=== PATIENT | male | born 1975 | race Two or more races ===

== ENCOUNTER 2018-03-28 12:40 | Inpatient (IN) | payer MEDICAID ==
[~2018-03-28] VITALS: Ht 175.3 cm; Wt 98.3 kg
[2018-03-28] VITALS (9 sets, daily range): BP systolic 115–125; BP diastolic 65–74
[2018-03-28 13:41] LABS: White Blood Cell 17.8 10^3/uL (4.4-10.8)
[2018-03-28 13:42] LABS: Hematocrit 20.5 % (41.0-53.0); Mean Corpuscular Hemoglobin 21.3 pg (28.0-32.0); Mean Corpuscular Hgb Conc. 30.7 g/dL (32.0-36.0); Mean Corpuscular Volume 69.3 fL (80.0-100.0); Platelet Count (auto) 250 10^3/uL (140-450); Red Blood Cells 2.96 10^6/uL (4.5-5.90)
[2018-03-28] MEDS ORDERED: SODIUM CHLORIDE 0.9% 1,000 ML IVB ONE (13:42)
[2018-03-28 13:48] LABS: Hemoglobin 6.3 g/dL (13.5-17.5)
[2018-03-28 13:54] LABS: Potassium 3.5 mmol/L (3.5-5.1)
[2018-03-28 13:58] LABS: BUN/Creatinine Ratio 7.7; Calcium 7.7 mg/dL (8.5-10.1)
[2018-03-28 14:01] LABS: Bilirubin, Total 0.6 mg/dL (0.2-1.0); Total Protein 7.5 g/dL (6.4-8.2)
[2018-03-28 14:06] LABS: Basophils % (manual) 0 (0.0-2.0); Blast Cells 0; Eosinophils % (manual) 0 (0-7); Metamyelocytes % 0; Myelocytes % 0; Promyelocytes % 0; Reactive Lymphocytes 0
[2018-03-28 14:11] LABS: Band Neutrophils % (manual) 23; Lymphocytes % (manual) 4 (10.0-50.0); Monocytes % (manual) 1 (0-12)
[2018-03-28 14:21] LABS: INR 0.98 (0.9-1.15); Partial Thromboplastin Time 28.4 sec (23.78-33.04); Prothrombin Time 10.7 sec (9.27-12.13)
[2018-03-28] MEDS ORDERED: LIDOCAINE 2% JELLY 11ml (GLYDO) UR ONE (15:15)
[2018-03-28] MEDS ORDERED: cefTRIAXone 1GM/10ml IVPUSH 10 ML IV ONE (15:30)
[2018-03-28] MEDS ORDERED: NITROGLYCERIN 0.4 MG SL TAB SL PRN (15:30)
[2018-03-28] MEDS ORDERED: MORPHINE SULFATE 4 MG/ML SYR/VIAL IV PRN ×2 (15:30)
[2018-03-28] MEDS ORDERED: TAMSULOSIN HYDROCHLORIDE 0.4 MG CAP PO ONE (15:30)
[2018-03-28] MEDS: SODIUM CHLORIDE 0.9% 1,000 ML IV SCH ×2 (15:44→23:36)
[2018-03-28 15:45] LABS: Urine Bacteria FEW /hpf (None Seen); Urine Blood 2+ /uL (Negative); Urine Mucus FEW (None Seen); Urine Specific Gravity 1.013 (1.001-1.035); Urine WBC 874 /hpf (0 - 3); Urine WBC Clumps PRESENT /hpf (None Seen)
[2018-03-28] MEDS ORDERED: PANTOPRAZOLE 40 MG/10 ML VIAL IV ONE (15:45)
[2018-03-28 15:47] LABS: Alcohol, Urine < 3.0 mg/dL (0-5); Barbiturate Scree,Urine NEGATIVE (NEGATIVE); Benzodiazephine Screen, Urine NEGATIVE (NEGATIVE); Cannabinoid Screen, Urine POSITIVE (NEGATIVE); Cocaine Screen, Urine NEGATIVE (NEGATIVE); Opiate Scree,Urine NEGATIVE (NEGATIVE); Phencyclidine Screen, Urine NEGATIVE (NEGATIVE)
[2018-03-28 15:58] LABS: Amphetamine Screen, Urine POSITIVE (NEGATIVE)
[2018-03-28] MEDS ORDERED: GOLYTELY 4L KIT PO ONE (16:45)
[2018-03-28] MEDS: TAMSULOSIN HYDROCHLORIDE 0.4 MG CAP PO SCH (18:37)
[2018-03-28] MEDS: HYDROcodone-ACET 5/325MG TAB PO PRN (21:15)
[2018-03-28 22:12] LABS: % Iron Saturation 1.9 % (20-55)
[2018-03-29 04:40] VITALS: BP 108/70
[2018-03-29] MEDS ORDERED: INFLUENZA QUAD 2018-2019 0.5 ML SYRG IM ONE (05:15)
[2018-03-29] MEDS ORDERED: GOLYTELY 4L KIT PO ONE (06:00)
[2018-03-29 06:15] LABS: Basophils # (auto) 0 uL; Basophils % (auto) 0.2 % (0.0-2.0); Eosinophils # (auto) 0 uL; Hemoglobin 8.1 g/dL (13.5-17.5); Monocytes # (auto) 0.7 uL; Platelet Count (auto) 200 10^3/uL (140-450)
[2018-03-29 06:17] LABS: Eosinophils % (auto) 0.1 % (0.0-7.0); Hematocrit 24.8 % (41.0-53.0); Lymphocytes # (auto) 0.5 uL; Lymphocytes % (auto) 3.1 % (10.0-50.0); Mean Corpuscular Hemoglobin 23.7 pg (28.0-32.0); Mean Corpuscular Hgb Conc. 32.6 g/dL (32.0-36.0); Mean Corpuscular Volume 72.7 fL (80.0-100.0); Neutrophils # (auto) 15.9 uL; Neutrophils % (auto) 92.6 % (37.0-80.0); Red Blood Cells 3.42 10^6/uL (4.5-5.90); White Blood Cell 17.1 10^3/uL (4.4-10.8)
[2018-03-29 06:32] LABS: BUN/Creatinine Ratio 8.5; Potassium 3.6 mmol/L (3.5-5.1)
[2018-03-29 08:02] VITALS: BP 103/67
[2018-03-29] MEDS ORDERED: MIDAZOLAM HCL 5 MG/ML-1ML VIAL ONE (08:26)
[2018-03-29] MEDS ORDERED: fentaNYL CITRATE 100 MCG/2 ML VL ONE (08:26)
[2018-03-29] MEDS ORDERED: SODIUM CHLORIDE LOCK 10 ML ONE (08:26)
[2018-03-29] MEDS ORDERED: diphenhdrAMINE HCL 50 MG/1 ML VL ONE (08:26)
[2018-03-29] MEDS ORDERED: cefTRIAXone 1GM/10ml IVPUSH 10 ML IV SCH (09:00)
[2018-03-29] MEDS: PANTOPRAZOLE 40 MG/10 ML VIAL IV SCH (10:08)
[2018-03-29] MEDS ORDERED: SODIUM CHLORIDE 0.9% 500 ML IV ONE (12:15)
[2018-03-29] MEDS ORDERED: PIPERACILLIN-TAZOB 2.25GM 50 ML IV ONE (12:15)
[2018-03-29 12:26] VITALS: BP 109/71
[2018-03-29] MEDS: SODIUM CHLORIDE 0.9% 1,000 ML IV SCH ×3 (15:30→23:41)
[2018-03-29 16:56] VITALS: BP 115/71
[2018-03-29] MEDS: TAMSULOSIN HYDROCHLORIDE 0.4 MG CAP PO SCH (17:31)
[2018-03-29] MEDS: PIPERACILLIN-TAZOB 2.25GM 50 ML IV SCH (18:00)
[2018-03-29] MEDS: HYDROmorphone HCL 2 MG/ML VL IV PRN (19:14)
[2018-03-29] MEDS: HYDROcodone-ACET 5/325MG TAB PO PRN ×2 (20:50→23:40)
[2018-03-29 21:30] VITALS: BP 120/72
[2018-03-30] MEDS: PIPERACILLIN-TAZOB 2.25GM 50 ML IV SCH ×4 (00:02→17:43)
[2018-03-30] MEDS: HYDROcodone-ACET 5/325MG TAB PO PRN ×3 (04:18→19:55)
[2018-03-30 05:00] VITALS: BP 117/66
[2018-03-30] MEDS ORDERED: FLEET ENEMA(ADULT) 135 ML PR ONE (06:00)
[2018-03-30 06:26] LABS: Basophils # (auto) 0 uL; Eosinophils # (auto) 0 uL; Lymphocytes # (auto) 0.4 uL; Monocytes # (auto) 0.6 uL
[2018-03-30 06:30] LABS: Hematocrit 22.4 % (41.0-53.0); Hemoglobin 7.5 g/dL (13.5-17.5); Lymphocytes % (auto) 2.8 % (10.0-50.0); Mean Corpuscular Hemoglobin 24.2 pg (28.0-32.0); Mean Corpuscular Hgb Conc. 33.5 g/dL (32.0-36.0); Mean Corpuscular Volume 72.2 fL (80.0-100.0); Monocytes % (auto) 4.2 % (0.0-12.0); Neutrophils # (auto) 14.4 uL; Platelet Count (auto) 168 10^3/uL (140-450); Red Blood Cells 3.09 10^6/uL (4.5-5.90); White Blood Cell 15.5 10^3/uL (4.4-10.8)
[2018-03-30 06:32] LABS: Red Cell Distribution Width 23.3 % (11.8-14.3)
[2018-03-30 06:46] LABS: Calcium 6.8 mg/dL (8.5-10.1); Potassium 3.4 mmol/L (3.5-5.1)
[2018-03-30] MEDS: SODIUM CHLORIDE 0.9% 1,000 ML IV SCH ×2 (08:44→15:30)
[2018-03-30 09:00] VITALS: BP 108/73
[2018-03-30] MEDS: PANTOPRAZOLE 40 MG/10 ML VIAL IV SCH (09:23)
[2018-03-30 13:00] VITALS: BP 116/57
[2018-03-30] MEDS ORDERED: IODIXANOL 320MG/ML 100ML BTL IV ONE (13:06)
[2018-03-30] MEDS ORDERED: LIDOCAINE 2%HCL (LOCAL ANESTH.) INJ 20ML MDV ONE (13:06)
[2018-03-30] MEDS ORDERED: fentaNYL CITRATE 100 MCG/2 ML VL ONE (13:08)
[2018-03-30] MEDS ORDERED: MIDAZOLAM HCL 1MG/1ML-2 ML VIAL ONE (13:09)
[2018-03-30] MEDS ORDERED: POTASSIUM CHL 20 Meq TABLET PO ONE (13:15)
[2018-03-30] MEDS ORDERED: LIDOCAINE 2%HCL (LOCAL ANESTH.) INJ 10ml MDV ONE (13:58)
[2018-03-30] MEDS ORDERED: ACETAMINOPHEN 500 MG TAB PO PRN (15:30)
[2018-03-30 17:38] VITALS: BP 115/71
[2018-03-30] MEDS: TAMSULOSIN HYDROCHLORIDE 0.4 MG CAP PO SCH (17:43)
[2018-03-30 21:30] VITALS: BP 125/75
[2018-03-31] MEDS: SODIUM CHLORIDE 0.9% 1,000 ML IV SCH ×3 (01:43→15:53)
[2018-03-31] MEDS: PIPERACILLIN-TAZOB 2.25GM 50 ML IV SCH ×3 (01:43→12:34)
[2018-03-31] MEDS: HYDROcodone-ACET 5/325MG TAB PO PRN ×2 (01:49→10:47)
[2018-03-31 05:00] VITALS: BP 121/76
[2018-03-31 06:38] LABS: Basophils # (auto) 0 uL; Eosinophils # (auto) 0 uL; Eosinophils % (auto) 0.1 % (0.0-7.0); Lymphocytes # (auto) 0.4 uL; Lymphocytes % (auto) 3.1 % (10.0-50.0)
[2018-03-31 06:41] LABS: Basophils % (auto) 0.1 % (0.0-2.0); Hematocrit 21.5 % (41.0-53.0); Hemoglobin 7.1 g/dL (13.5-17.5); Mean Corpuscular Hgb Conc. 32.9 g/dL (32.0-36.0); Mean Corpuscular Volume 72.8 fL (80.0-100.0); Monocytes # (auto) 0.7 uL; Monocytes % (auto) 5.4 % (0.0-12.0); Neutrophils # (auto) 11.7 uL; Neutrophils % (auto) 91.3 % (37.0-80.0); Platelet Count (auto) 144 10^3/uL (140-450); Red Blood Cells 2.95 10^6/uL (4.5-5.90); White Blood Cell 12.8 10^3/uL (4.4-10.8)
[2018-03-31 06:57] LABS: Potassium 4.1 mmol/L (3.5-5.1); Red Cell Distribution Width 23.3 % (11.8-14.3)
[2018-03-31 07:03] LABS: BUN/Creatinine Ratio 7.8; Bilirubin, Total 0.4 mg/dL (0.2-1.0); Calcium 6.6 mg/dL (8.5-10.1); Total Protein 5.8 g/dL (6.4-8.2)
[2018-03-31 08:58] VITALS: BP 113/66
[2018-03-31] MEDS: PANTOPRAZOLE 40 MG/10 ML VIAL IV SCH (10:21)
[2018-03-31 13:00] VITALS: BP 118/68
[2018-03-31] MEDS: SODIUM FERR GLUC 62.5MG/5ML 125 MG in SODIUM CHL 0.9% 100 ML IV SCH (13:03)
[2018-03-31] MEDS ORDERED: LEVOFLOXACIN 250 MG TAB PO ONE (14:00)
[2018-03-31 17:00] VITALS: BP 116/64
[2018-03-31 17:02] VITALS: BP 116/64
[2018-03-31] MEDS: HYDROcodone-ACET 10/325MG TAB PO PRN (17:21)
[2018-03-31] MEDS: TAMSULOSIN HYDROCHLORIDE 0.4 MG CAP PO SCH (17:35)
[2018-03-31 21:15] LABS: Urine Bacteria NONE SEEN /hpf (None Seen); Urine Blood 3+ /uL (Negative); Urine Mucus FEW (None Seen); Urine Specific Gravity 1.021 (1.001-1.035); Urine WBC 315 /hpf (0 - 3); Urine WBC Clumps PRESENT /hpf (None Seen)
[2018-03-31 21:24] LABS: Protein, Urine 227.2 mg/dL (0.0-11.9)
[2018-03-31 22:00] VITALS: BP 136/80
[2018-04-01] MEDS: SODIUM CHLORIDE 0.9% 1,000 ML IV SCH ×2 (00:27→05:38)
[2018-04-01 04:49] VITALS: BP 135/76
[2018-04-01 05:58] LABS: Hemoglobin 7.5 g/dL (13.5-17.5); White Blood Cell 9.6 10^3/uL (4.4-10.8)
[2018-04-01 06:02] LABS: Hematocrit 22.7 % (41.0-53.0); Mean Corpuscular Hemoglobin 24.1 pg (28.0-32.0); Mean Corpuscular Volume 72.9 fL (80.0-100.0); Platelet Count (auto) 138 10^3/uL (140-450); Red Blood Cells 3.12 10^6/uL (4.5-5.90)
[2018-04-01 06:11] LABS: Red Cell Distribution Width 23.2 % (11.8-14.3)
[2018-04-01 06:12] LABS: Basophils % (manual) 0 (0.0-2.0); Blast Cells 0; Eosinophils % (manual) 0 (0-7); Myelocytes % 0; Promyelocytes % 0; Reactive Lymphocytes 0
[2018-04-01 06:15] LABS: Potassium 3.6 mmol/L (3.5-5.1)
[2018-04-01 06:17] LABS: BUN/Creatinine Ratio 8.2; Phosphorus 4.6 mg/dL (2.5-4.90); Uric Acid 5.2 mg/dL (3.5-7.2)
[2018-04-01 08:00] VITALS: BP 131/75
[2018-04-01 08:18] LABS: Band Neutrophils % (manual) 6; Lymphocytes % (manual) 4 (10.0-50.0); Metamyelocytes % 3; Monocytes % (manual) 4 (0-12)
[2018-04-01 09:00] VITALS: BP 131/75
[2018-04-01] MEDS: PANTOPRAZOLE 40 MG/10 ML VIAL IV SCH (09:46)
[2018-04-01] MEDS: HYDROmorphone HCL 2 MG/ML VL IV PRN ×2 (11:06→18:32)
[2018-04-01] MEDS: SODIUM BICARBONATE 50ML VIAL 75 ML in SOD CHL 0.45% 1,000 ML IV SCH ×2 (11:07→17:43)
[2018-04-01] MEDS: SODIUM FERR GLUC 62.5MG/5ML 125 MG in SODIUM CHL 0.9% 100 ML IV SCH (12:45)
[2018-04-01 13:06] VITALS: BP 133/75
[2018-04-01] MEDS ORDERED: MORPHINE SULFATE 4 MG/ML SYR/VIAL IV PRN (15:45)
[2018-04-01 16:53] VITALS: BP 139/76
[2018-04-01] MEDS: TAMSULOSIN HYDROCHLORIDE 0.4 MG CAP PO SCH (17:08)
[2018-04-01] MEDS: cefTRIAXone 1GM/10ml IVPUSH 10 ML IV SCH (17:08)
[2018-04-01] MEDS: HYDROcodone-ACET 10/325MG TAB PO PRN (17:21)
[2018-04-01 21:33] VITALS: BP 138/89
[2018-04-02] VITALS (12 sets, daily range): BP systolic 127–147; BP diastolic 72–97
[2018-04-02] MEDS: HYDROcodone-ACET 10/325MG TAB PO PRN ×2 (01:10→10:25)
[2018-04-02] MEDS: SODIUM BICARBONATE 50ML VIAL 75 ML in SOD CHL 0.45% 1,000 ML IV SCH ×3 (01:11→17:22)
[2018-04-02 07:32] LABS: Hematocrit 23.3 % (41.0-53.0); Hemoglobin 7.7 g/dL (13.5-17.5)
[2018-04-02 07:34] LABS: Calcium 7.2 mg/dL (8.5-10.1); Potassium 3.3 mmol/L (3.5-5.1)
[2018-04-02 07:36] LABS: INR 1.03 (0.9-1.15); Partial Thromboplastin Time 37.6 sec (23.78-33.04)
[2018-04-02 07:38] LABS: BUN/Creatinine Ratio 9.2
[2018-04-02] MEDS ORDERED: POTASSIUM CHL 20 Meq TABLET PO ONE (09:30)
[2018-04-02] MEDS: PANTOPRAZOLE 40 MG/10 ML VIAL IV SCH (09:42)
[2018-04-02] MEDS: cefTRIAXone 1GM/10ml IVPUSH 10 ML IV SCH (09:42)
[2018-04-02] MEDS ORDERED: INFLUENZA QUAD 2018-2019 0.5 ML SYRG IM ONE (09:45)
[2018-04-02] MEDS: SODIUM FERR GLUC 62.5MG/5ML 125 MG in SODIUM CHL 0.9% 100 ML IV SCH (11:48)
[2018-04-02] MEDS: HYDROmorphone HCL 2 MG/ML VL IV PRN ×2 (11:49→18:43)
[2018-04-02] MEDS ORDERED: LEVOFLOXACIN 500 MG TAB PO SCH (14:00)
[2018-04-02] MEDS: TAMSULOSIN HYDROCHLORIDE 0.4 MG CAP PO SCH (18:00)
[2018-04-03] MEDS: HYDROmorphone HCL 2 MG/ML VL IV PRN ×2 (01:29→20:07)
[2018-04-03 05:00] VITALS: BP 138/78
[2018-04-03 07:29] LABS: Calcium 7.6 mg/dL (8.5-10.1); Potassium 3.4 mmol/L (3.5-5.1)
[2018-04-03 07:32] LABS: BUN/Creatinine Ratio 9.7
[2018-04-03 07:44] LABS: Hematocrit 26.1 % (41.0-53.0)
[2018-04-03 07:46] LABS: Hemoglobin 8.6 g/dL (13.5-17.5); Mean Corpuscular Hemoglobin 24.2 pg (28.0-32.0); Mean Corpuscular Volume 73.4 fL (80.0-100.0); Platelet Count (auto) 197 10^3/uL (140-450); Red Blood Cells 3.56 10^6/uL (4.5-5.90); Red Cell Distribution Width 23.7 % (11.8-14.3); White Blood Cell 10.7 10^3/uL (4.4-10.8)
[2018-04-03 07:47] LABS: Band Neutrophils % (manual) 0; Basophils % (manual) 0 (0.0-2.0); Blast Cells 0; Eosinophils % (manual) 0 (0-7); Metamyelocytes % 0; Monocytes % (manual) 0 (0-12); Myelocytes % 0; Promyelocytes % 0; Reactive Lymphocytes 0
[2018-04-03 08:44] VITALS: BP 122/71
[2018-04-03] MEDS ORDERED: POTASSIUM CHL 20 Meq TABLET PO ONE (09:15)
[2018-04-03 09:23] LABS: Lymphocytes % (manual) 1 (10.0-50.0)
[2018-04-03] MEDS: SODIUM BICARBONATE 50ML VIAL 75 ML in SOD CHL 0.45% 1,000 ML IV SCH ×3 (09:52→20:14)
[2018-04-03] MEDS: PANTOPRAZOLE 40 MG/10 ML VIAL IV SCH (09:52)
[2018-04-03] MEDS: cefTRIAXone 1GM/10ml IVPUSH 10 ML IV SCH (09:52)
[2018-04-03] MEDS ORDERED: ceFAZolin 1GM/50ML 50 ML IV ONE (12:37)
[2018-04-03 13:07] VITALS: BP 149/88
[2018-04-03] MEDS ORDERED: LIDOCAINE 1% HCL (LOCAL ANESTH.) INJ 20ML MDV ONE (15:08)
[2018-04-03] MEDS ORDERED: SUCCINYLCHOLINE CHLORIDE 20 MG/ML 10ML VIAL IV ONE (15:08)
[2018-04-03] MEDS ORDERED: IOHEXOL 300 MG/ML 100ML BOTTLE IJ ONE (15:13)
[2018-04-03] MEDS ORDERED: MIDAZOLAM HCL 1MG/1ML-2 ML VIAL ONE (15:22)
[2018-04-03] MEDS ORDERED: METOCLOPRAMIDE HCL 5MG/ml INJ 2ml VIAL ONE (15:22)
[2018-04-03] MEDS ORDERED: PROPOFOL 10 MG/ML 20 ML IV ONE (15:24)
[2018-04-03] MEDS ORDERED: fentaNYL CITRATE 100 MCG/2 ML VL ONE (15:34)
[2018-04-03] MEDS ORDERED: HYDROmorphone HCL 2 MG/ML VL IV PRN ×2 (15:45)
[2018-04-03] MEDS ORDERED: NALOXONE HCL 0.4 MG/ML VIAL IV PRN (15:45)
[2018-04-03] MEDS ORDERED: ONDANSETRON HCL 4 MG/2 ML VIAL IV ONE (15:45)
[2018-04-03] MEDS ORDERED: ALBUTEROL SULF 2.5 MG/0.5ML(0.5%) NEB SOLN NEB ONE (17:00)
[2018-04-03] MEDS ORDERED: IPRATROPIUM BROM 0.5 MG/2.5ML INH SOL NEB ONE (17:00)
[2018-04-03] MEDS: TAMSULOSIN HYDROCHLORIDE 0.4 MG CAP PO SCH (18:10)
[2018-04-03 19:05] LABS: BUN/Creatinine Ratio 9.2; Calcium 7.5 mg/dL (8.5-10.1)
[2018-04-03] MEDS: ONDANSETRON HCL 4 MG/2 ML VIAL IV PRN (20:07)
[2018-04-03 22:00] VITALS: BP 140/85
[2018-04-04 05:00] VITALS: BP 131/87
[2018-04-04 06:10] LABS: Hematocrit 31.1 % (41.0-53.0); Hemoglobin 10.1 g/dL (13.5-17.5); Mean Corpuscular Hemoglobin 24.5 pg (28.0-32.0); Mean Corpuscular Hgb Conc. 32.5 g/dL (32.0-36.0); Mean Corpuscular Volume 75.3 fL (80.0-100.0); Platelet Count (auto) 264 10^3/uL (140-450); Red Blood Cells 4.13 10^6/uL (4.5-5.90); White Blood Cell 15.4 10^3/uL (4.4-10.8)
[2018-04-04 06:17] LABS: Red Cell Distribution Width 24.4 % (11.8-14.3)
[2018-04-04 06:18] LABS: Basophils % (manual) 0 (0.0-2.0); Blast Cells 0; Myelocytes % 0; Promyelocytes % 0; Reactive Lymphocytes 0
[2018-04-04 06:27] LABS: Calcium 8.2 mg/dL (8.5-10.1)
[2018-04-04] MEDS: SODIUM BICARBONATE 50ML VIAL 75 ML in SOD CHL 0.45% 1,000 ML IV SCH ×3 (06:30→21:36)
[2018-04-04 07:41] LABS: Band Neutrophils % (manual) 1; Eosinophils % (manual) 3 (0-7); Lymphocytes % (manual) 10 (10.0-50.0); Metamyelocytes % 1; Monocytes % (manual) 4 (0-12)
[2018-04-04 08:30] VITALS: BP 135/81
[2018-04-04] MEDS: HYDROmorphone HCL 2 MG/ML VL IV PRN ×3 (08:42→22:39)
[2018-04-04] MEDS: ONDANSETRON HCL 4 MG/2 ML VIAL IV PRN ×3 (08:43→22:38)
[2018-04-04] MEDS: PANTOPRAZOLE 40 MG/10 ML VIAL IV SCH (08:43)
[2018-04-04] MEDS: cefTRIAXone 1GM/50ML D5W 50 ML IV SCH (08:43)
[2018-04-04 15:17] VITALS: BP 147/93
[2018-04-04 16:34] VITALS: BP 137/88
[2018-04-04] MEDS: TAMSULOSIN HYDROCHLORIDE 0.4 MG CAP PO SCH (18:00)
[2018-04-04 22:15] VITALS: BP 153/105
[2018-04-05] MEDS: HYDROmorphone HCL 2 MG/ML VL IV PRN ×4 (05:25→21:52)
[2018-04-05] MEDS: ONDANSETRON HCL 4 MG/2 ML VIAL IV PRN ×2 (05:27→17:32)
[2018-04-05 05:30] VITALS: BP 138/86
[2018-04-05 06:07] LABS: Hemoglobin 8.7 g/dL (13.5-17.5); Mean Corpuscular Volume 75.2 fL (80.0-100.0)
[2018-04-05 06:12] LABS: Hematocrit 26.2 % (41.0-53.0); Mean Corpuscular Hemoglobin 24.9 pg (28.0-32.0); Mean Corpuscular Hgb Conc. 33.1 g/dL (32.0-36.0); Platelet Count (auto) 246 10^3/uL (140-450); Red Blood Cells 3.49 10^6/uL (4.5-5.90); White Blood Cell 11.5 10^3/uL (4.4-10.8)
[2018-04-05 06:18] LABS: Red Cell Distribution Width 23.9 % (11.8-14.3)
[2018-04-05 06:19] LABS: Basophils % (manual) 0 (0.0-2.0); Blast Cells 0; Metamyelocytes % 0; Myelocytes % 0; Promyelocytes % 0; Reactive Lymphocytes 0
[2018-04-05 08:34] LABS: Potassium 3.6 mmol/L (3.5-5.1)
[2018-04-05 08:38] LABS: BUN/Creatinine Ratio 9.2; Bilirubin, Total 0.4 mg/dL (0.2-1.0); Calcium 7.8 mg/dL (8.5-10.1)
[2018-04-05 08:43] LABS: Band Neutrophils % (manual) 4; Monocytes % (manual) 2 (0-12)
[2018-04-05 08:44] LABS: Eosinophils % (manual) 1 (0-7); Lymphocytes % (manual) 8 (10.0-50.0)
[2018-04-05] MEDS: PANTOPRAZOLE 40 MG/10 ML VIAL IV SCH (09:26)
[2018-04-05] MEDS: SODIUM BICARBONATE 50ML VIAL 75 ML in SOD CHL 0.45% 1,000 ML IV SCH (09:26)
[2018-04-05] MEDS: cefTRIAXone 1GM/50ML D5W 50 ML IV SCH (09:26)
[2018-04-05 09:33] VITALS: BP 137/86
[2018-04-05] MEDS ORDERED: GOLYTELY 4L KIT PO ONE (12:00)
[2018-04-05] MEDS ORDERED: MORPHINE SULFATE 4 MG/ML SYR/VIAL IV PRN (12:45)
[2018-04-05] MEDS ORDERED: HYDROcodone-ACET 10/325MG TAB PO PRN (12:45)
[2018-04-05 13:23] VITALS: BP_SYST 132; BP_SYST 145; BP_DIAS 83; BP_DIAS 99
[2018-04-05] MEDS: TAMSULOSIN HYDROCHLORIDE 0.4 MG CAP PO SCH ×2 (15:02→17:33)
[2018-04-05] MEDS: SODIUM CHLORIDE 0.9% 1,000 ML IV SCH (15:08)
[2018-04-05 17:05] VITALS: BP 130/90
[2018-04-06] MEDS ORDERED: GOLYTELY 4L KIT PO ONE (04:00)
[2018-04-06] MEDS: HYDROmorphone HCL 2 MG/ML VL IV PRN ×4 (04:04→21:11)
[2018-04-06 05:18] VITALS: BP 155/95
[2018-04-06 06:54] LABS: BUN/Creatinine Ratio 6.7; Calcium 7.6 mg/dL (8.5-10.1); Potassium 3.6 mmol/L (3.5-5.1)
[2018-04-06] MEDS: SODIUM CHLORIDE 0.9% 1,000 ML IV SCH ×2 (06:55→23:35)
[2018-04-06] MEDS ORDERED: NALOXONE HCL 0.4 MG/ML VIAL ONE (08:26)
[2018-04-06] MEDS ORDERED: FLUMAZENIL 0.1 MG/ML INJ 10ML MDV IV ONE (08:26)
[2018-04-06] MEDS ORDERED: SODIUM CHLORIDE LOCK 10 ML ONE (08:26)
[2018-04-06] MEDS: PANTOPRAZOLE 40 MG/10 ML VIAL IV SCH (08:47)
[2018-04-06 09:00] VITALS: BP 137/92
[2018-04-06] MEDS: cefTRIAXone 1GM/50ML D5W 50 ML IV SCH (09:00)
[2018-04-06] MEDS: fentaNYL CITRATE 100 MCG/2 ML VL ONE ×3 (09:12→09:20)
[2018-04-06] MEDS: MIDAZOLAM HCL 5 MG/ML-1ML VIAL ONE ×4 (09:12→09:23)
[2018-04-06] MEDS ORDERED: diphenhdrAMINE 50mg/ml (500mg/10ml VIAL) ONE (10:46)
[2018-04-06 13:00] VITALS: BP 150/93
[2018-04-06 17:00] VITALS: BP 136/86
[2018-04-06] MEDS: TAMSULOSIN HYDROCHLORIDE 0.4 MG CAP PO SCH (18:00)
[2018-04-06 22:21] VITALS: BP 147/96
[2018-04-07] MEDS: HYDROmorphone HCL 2 MG/ML VL IV PRN ×3 (01:17→12:45)
[2018-04-07 05:33] VITALS: BP 142/85
[2018-04-07 06:42] LABS: Basophils # (auto) 0.1 uL; Eosinophils # (auto) 0.3 uL; Lymphocytes # (auto) 1.1 uL; Monocytes # (auto) 0.5 uL; White Blood Cell 9.2 10^3/uL (4.4-10.8)
[2018-04-07 06:44] LABS: Basophils % (auto) 0.9 % (0.0-2.0); Eosinophils % (auto) 3.2 % (0.0-7.0); Hematocrit 25.4 % (41.0-53.0); Hemoglobin 8.2 g/dL (13.5-17.5); Lymphocytes % (auto) 11.6 % (10.0-50.0); Mean Corpuscular Hemoglobin 24.4 pg (28.0-32.0); Mean Corpuscular Hgb Conc. 32.2 g/dL (32.0-36.0); Monocytes % (auto) 5.4 % (0.0-12.0); Neutrophils # (auto) 7.2 uL; Neutrophils % (auto) 78.9 % (37.0-80.0); Platelet Count (auto) 275 10^3/uL (140-450); Red Blood Cells 3.34 10^6/uL (4.5-5.90)
[2018-04-07 06:58] LABS: Red Cell Distribution Width 25.1 % (11.8-14.3)
[2018-04-07 07:30] LABS: BUN/Creatinine Ratio 5.4; Calcium 7.6 mg/dL (8.5-10.1); Potassium 3.5 mmol/L (3.5-5.1)
[2018-04-07] MEDS: cefTRIAXone 1GM/50ML D5W 50 ML IV SCH (08:09)
[2018-04-07 09:00] VITALS: BP 139/90
[2018-04-07] MEDS ORDERED: PANTOPRAZOLE 40 MG TAB PO SCH (10:00)
[2018-04-07 15:00] VITALS: BP 139/90
== END 2018-04-07 15:30 | disposition home or self-care (01) | DRG 720 ==
LOC: ER 12:40 → TELE 12:41 → TELE-WESTW 20:47 → WEST WING 04-06 01:20
PROVIDERS: ADMIT Internal Medicine; ATTEND Internal Medicine
PROC: 30233N1 Transfusion of Nonautologous Red Blood Cells into Peripheral Vein, Percutaneous Approach (ICD-10-PCS; 2018-03-28)
PROC: 0TF6XZZ Fragmentation in Right Ureter, External Approach (ICD-10-PCS; principal; 2018-04-03 15:14)
PROC: 0T768DZ Dilation of Right Ureter with Intraluminal Device, Via Natural or Artificial Opening Endoscopic (ICD-10-PCS; 2018-04-03 15:14)
PROC: 0DJD8ZZ Inspection of Lower Intestinal Tract, Via Natural or Artificial Opening Endoscopic (ICD-10-PCS; 2018-04-06)
DX: A41.9 Sepsis, unspecified organism (principal); N17.0 Acute kidney failure with tubular necrosis; E43 Unspecified severe protein-calorie malnutrition; D62 Acute posthemorrhagic anemia; N18.4 Chronic kidney disease, stage 4 (severe); F15.10 Other stimulant abuse, uncomplicated; N13.6 Pyonephrosis; F15.129 Other stimulant abuse with intoxication, unspecified; N39.0 Urinary tract infection, site not specified; K92.1 Melena; N20.0 Calculus of kidney; N43.3 Hydrocele, unspecified; B96.20 Unspecified Escherichia coli [E. coli] as the cause of diseases classified elsewhere; F12.90 Cannabis use, unspecified, uncomplicated; F17.210 Nicotine dependence, cigarettes, uncomplicated; K40.90 Unilateral inguinal hernia, without obstruction or gangrene, not specified as recurrent; K64.8 Other hemorrhoids; K64.4 Residual hemorrhoidal skin tags; I12.9 Hypertensive chronic kidney disease with stage 1 through stage 4 chronic kidney disease, or unspecified chronic kidney disease; D50.9 Iron deficiency anemia, unspecified; N50.89 Other specified disorders of the male genital organs; Z53.9 Procedure and treatment not carried out, unspecified reason; Z79.899 Other long term (current) drug therapy; Z82.49 Family history of ischemic heart disease and other diseases of the circulatory system; Z68.24 Body mass index [BMI] 24.0-24.9, adult
CPT/HCPCS: 45378; 96361; 96374; 96375; 96376; 99285; S2070; 36415; 36430; 70450; 71045; 74018; 74176; 76870; 76942; 80048; 80053; 80307; 81001; 82270; 82306; 82570; 83540; 83550; 83605; 83735; 84100; 84156; 84300; 84484; 84550; 85007; 85014; 85018; 85025; 85027; 85610; 85730; 86850; 86900; 86901; 86920; 87040; 87077; 87086; 87088; 87186; 90674; 93005; 94640; 94761; 97163; 99152; A6257; C9113; J0330; J0690; J0696; J1200; J2001; J2250; J2405; J2543; J2704; Q9967

== ENCOUNTER 2020-03-01 22:14 | Emergency (ER) | payer MEDICAID ==
[~2020-03-01] VITALS: Ht 172.7 cm; Wt 68.0 kg
[2020-03-02] MEDS ORDERED: ONDANSETRON HCL 4 MG/2 ML VIAL IM ONE (03:00)
[2020-03-02] MEDS ORDERED: cefTRIAXone SOD 1,000 MG VL IM ONE (03:00)
[2020-03-02] MEDS ORDERED: MORPHINE SULF INJ 2 MG/ML SYRINGE 1ML IM ONE (03:00)
[2020-03-02] MEDS ORDERED: ONDANSETRON ODT 4 MG TAB PO ONE (03:15)
[2020-03-02 04:19] VITALS: BP 122/78
[2020-03-02] MEDS ORDERED: HYDROmorphone HCL 2 MG/ML VL IM ONE (04:30)
== END 2020-03-02 06:03 | disposition home or self-care (01) ==
LOC: EDBD 22:14 → ER 22:15
DX: S40.211A Abrasion of right shoulder, initial encounter (principal); S50.811A Abrasion of right forearm, initial encounter; M25.551 Pain in right hip; V87.8XXA Person injured in other specified noncollision transport accidents involving motor vehicle (traffic), initial encounter; Y93.89 Activity, other specified; Y92.89 Other specified places as the place of occurrence of the external cause; Y99.8 Other external cause status
CPT/HCPCS: 70450; 72125; 72192; 73030; 73562; 96372; 99285; J0696; J1170; J2270; J2405; Q0162

== ENCOUNTER 2021-01-16 23:15 | Emergency (ER) | payer MEDICAID ==
[~2021-01-16] VITALS: Ht 177.8 cm; Wt 77.1 kg
[2021-01-16 23:23] VITALS: BP 134/99
[2021-01-16] MEDS ORDERED: BETHANECHOL CHLORIDE 25 MG TAB PO ONE (23:30)
== END 2021-01-17 03:00 | disposition left against medical advice (07) ==
LOC: ER 23:15
DX: R30.9 Painful micturition, unspecified (principal); Z53.21 Procedure and treatment not carried out due to patient leaving prior to being seen by health care provider

== ENCOUNTER 2025-05-29 21:39 | Emergency (ER) | payer MEDICAID, OTHER ==
[~2025-05-29] VITALS: Ht 175.3 cm; Wt 64.3 kg
--- NOTE | 2025-05-29 22:13 | ED.PDOC ---
History of Present Illness HPI Comments 50 y/o M presents with c/c of urine retention x1 week. Chief Complaint: Urinary Time Seen by MD: 22:00 Primary Care Provider: [facility] PCP Reviewed Notes: Nurses Notes, Medications, Allergies Allergies: Coded Allergies: No Known Drug Allergy (Verified Allergy, Unknown, 03/28/18) Home Meds Active Scripts Ciprofloxacin Hcl (Cipro) 250 Mg Tab, 250 MG PO BID for 10 Days, #20 TAB Prov:FERNANDEZ CARLSON MD 05/30/25 Information Source: Patient Mode of Arrival: Ambulatory Severity: Moderate Timing: Days Duration: Since onset Prehospital treatment: None Past Medical History PAST MEDICAL HISTORY: Denies Surgical History: Denies all surgeries Family History Family History: No family hx of HTN Social History Smoker: Cigarettes, Less Than 1 Pack/Day Alcohol: Rarely Drugs: Marijuana Lives In: Home All Other Systems: Reviewed and Negative (As per HPI) Physical Exam General Appearance: No Apparent Distress, Normal HEENT: Normal ENT Inspection, Pharynx Normal, TMs Normal Neck: Full Range of Motion, Non-Tender, Normal, Normal Inspection Respiratory: Chest Non-Tender, Lungs Clear, No Accessory Muscle Use, No Respiratory Distress, Normal Breath Sounds Cardiovascular: No Edema, No JVD, No Murmur, No Gallop, Normal Peripheral Pulses, Regular Rate/Rhythm Breast Exam: Deferred Gastrointestinal: No Organomegaly, Non Tender, No Pulsatile Mass, Normal Bowel Sounds, Soft Genitalia: Deferred Pelvic: Deferred Rectal: Deferred Extremities: No calf tenderness, Normal capillary refill, Normal inspection, Normal range of motion, Non-tender, No pedal edema Musculoskeletal : Apperance: Normal Neurologic: Alert, oral surgeon II-XII nml as Tested, No Motor Deficits, Normal Affect, Normal Mood, No Sensory Deficits Cerebellar Function: Normal Reflexes: Normal Skin: Dry, Normal Color, Warm Lymphatic: No Adenopathy Was a procedure done? Was a procedure done?: No Differential Dx Considerations may include: ureteral stone, kidney stone, UTI, enlarged prostate, prostatitis, among others X-Ray, Labs, Meds, VS Vital Signs Date Time Temp Pulse Resp B/P (MAP) Pulse Ox O2 Delivery O2 Flow Rate FiO2 05/30/25 03:50 16 94 Room Air* 0 21 05/30/25 03:45 97.7 93 16 140/95 (110) 94 97.7 05/29/25 21:41 97.7 90 18 144/108 93 97.7 Lab Test 05/30/25 03:50 05/29/25 22:00 Range/Units Urine Color Light-yellow Yellow Urine Clarity Clear Clear Urine pH 6.5 5.0-9.0 Urine Specific [place] 1.015 1.001-1.035 Urine Protein Negative Negative Urine Ketones Negative Negative Urine Blood Trace H Negative /uL Urine Nitrite Negative Negative Urine Bilirubin Negative Negative Urine Urobilinogen Normal Negative mg/dL Urine Leukocyte Esterase Negative Negative /uL Urine RBC 4 0 - 3 /hpf Urine Microscopic WBC 2 0-3 /HPF Urine Squamous Epithelial Cells None seen <5 /hpf Urine Bacteria None seen None Seen /hpf Urine Glucose Normal Normal mg/dL White Blood Count 7.7 4.4-10.8 10^3/uL Red Blood Count 3.45 L 4.5-5.90 10^6/uL Hemoglobin 10.6 L 13.5-17.5 g/dL Hematocrit 31.6 L 41.0-53.0 % Mean Corpuscular Volume 91.5 80.0-100.0 fL Mean Corpuscular Hemoglobin 30.8 28.0-32.0 pg Mean Corpuscular Hemoglobin Concent 33.7 32.0-36.0 g/dL Red Cell Distribution Width 15.2 H 11.8-14.3 % Platelet Count 369 140-450 10^3/uL Mean Platelet Volume 6.6 L 6.9-10.8 fL Neutrophils (%) (Auto) 85.0 H 37.0-80.0 % Lymphocytes (%) (Auto) 8.8 L 10.0-50.0 % Monocytes (%) (Auto) 4.1 0.0-12.0 % Eosinophils (%) (Auto) 1.0 0.0-7.0 % Basophils (%) (Auto) 1.1 0.0-2.0 % Neutrophils # (Auto) 6.6 1.6-8.6 10 ^3/uL Lymphocytes # (Auto) 0.7 0.4-5.4 10 ^3/uL Monocytes # (Auto) 0.3 0-1.3 10 ^3/uL Eosinophils # (Auto) 0.1 0-0.8 10 ^3/uL Basophils # (Auto) 0.1 0-0.2 10 ^3/uL Nucleated Red Blood Cells 0.3 % Sodium Level 138 136-145 mmol/L Potassium Level 3.9 3.5-5.1 mmol/L Chloride Level 99 98-107 mmol/L Carbon Dioxide Level 31 20-31 mmol/L Anion Gap 8 5-15 Blood Urea Nitrogen 10 9-23 mg/dL Creatinine 1.30 0.700-1.30 mg/dL Glomerular Filtration Rate Calc 66 >90 mL/min BUN/Creatinine Ratio 7.7 L 10.0-20.0 Serum Glucose 82 74-106 mg/dL Calcium Level 9.5 8.7-10.4 mg/dL Time of 1ST Reevaluation: 22:30 Reevaluation 1ST: Unchanged Patient Education/Counseling: Diagnosis, Treatment Family Education/Counseling: No Family Present SEPSIS Sepsis Screen Date sepsis recognized/suspect: May 29, 2025 Time Sepsis recognized/suspect: 2144 Recent Procedure: No On Antibiotic Therapy: No Respiratory Rate >20: No Heart Rate >90: No Temp<36 C (96.8 F) or >38.3 C: No SBP <90 or MAP <65 mmHG: No New Acute Mental Status Change: No Is the patient on CPAP, BIPAP,: No Vital Signs Date Time Temp Pulse Resp B/P (MAP) Pulse Ox O2 Delivery O2 Flow Rate FiO2 05/30/25 03:50 16 94 Room Air* 0 21 05/30/25 03:45 97.7 93 16 140/95 (110) 94 97.7 05/29/25 21:41 97.7 90 18 144/108 93 97.7 Laboratory Tests Test 05/29/25 22:00 White Blood Count 7.7 10^3/uL (4.4-10.8) Departure 1 Departure Time of Disposition: 00:00 Impression: Primary Impression: Urinary retention Disposition: 01 HOME / SELF CARE / HOMELESS Condition: Stable e-Prescriptions Ciprofloxacin Hcl (Cipro) 250 Mg Tab 250 MG PO BID for 10 Days, #20 TAB Prov: FERNANDEZ CARLSON MD 05/30/25 Discharged With: Self Critical Care Note Critical Care Time?: No Stability Stability form required: No Heart Score Heart Score: Heart Score Response (Comments) Value History N/A 0 EKG N/A 0 Age N/A 0 Risk Factors N/A 0 Troponin N/A 0 Total 0 I personally scribed for FERNANDEZ CARLSON MD ([email or web address]) on 05/29/25 at 22:13. Electronically submitted by Chalo Baker [email or web address]). FERNANDEZ CARLSON MD May 29, 2025 22:13
[2025-05-29 22:31] LABS: Hematocrit 31.6 % (41.0-53.0); Hemoglobin 10.6 g/dL (13.5-17.5); Mean Corpuscular Hemoglobin 30.8 pg (28.0-32.0); Mean Corpuscular Volume 91.5 fL (80.0-100.0); Nucleated Red Blood Cells % 0.3 %
[2025-05-29 22:39] LABS: Chloride 99 mmol/L (98-107); Potassium 3.9 mmol/L (3.5-5.1); Sodium 138 mmol/L (136-145)
[2025-05-29 22:40] LABS: Anion Gap 8 (5-15); Calcium 9.5 mg/dL (8.7-10.4); Carbon Dioxide 31 mmol/L (20-31)
[2025-05-29 22:45] LABS: BUN/Creatinine Ratio 7.7 (10.0-20.0); Blood Urea Nitrogen 10 mg/dL (9-23); Glucose 82 mg/dL (74-106)
[2025-05-30] MEDS ORDERED: CIPR-273 PO (01:49)
[2025-05-30 03:45] VITALS: BP 140/95; PULSE 93; TEMP 97.7
[2025-05-30 03:50] VITALS: RESP 16; O2SAT 94
[2025-05-30 04:31] LABS: Urine Protein, UAD Negative (Negative)
== END 2025-05-30 04:00 | disposition home or self-care (01) ==
LOC: ER 21:39
DX: R33.9 Retention of urine, unspecified (principal); F17.210 Nicotine dependence, cigarettes, uncomplicated
CPT/HCPCS: 36415; 80048; 81001; 85025